=== PATIENT | female | born 1995 | race Caucasian/White ===

== ENCOUNTER 2018-09-30 00:25 | Observation (INO) ==
[2018-09-30] MEDS ORDERED: ONDANSETRON 4 MG/2 ML VIAL IVP ONE ×2 (00:45→02:28)
[2018-09-30] MEDS ORDERED: MORPHINE SULFATE 4 MG/1 ML IVP ONE (00:45)
[2018-09-30] MEDS ORDERED: Sodium Chloride 0.9% 1,000 ML PRIMARY IV ONE (00:45)
[2018-09-30] MEDS ORDERED: TAMSULOSIN 0.4 MG CAPSULE PO ONE (00:50)
[2018-09-30 00:51] LABS: BASOPHILS # (AUTO) 0.11 10*3/UL; BASOPHILS % (AUTO) 0.6 % (0-1); EOSINOPHILS # (AUTO) 0.22 10*3/UL; EOSINOPHILS % (AUTO) 1.3 % (0-8); Hematocrit [HCT] 37.1 % (37.0-47.0); Hemoglobin [HGB] 12.6 g/dL (12.0-16.0); LYMPHOCYTES # (AUTO) 8.36 10*3/uL; MEAN CORPUSCULAR HEMOGLOBIN 28.8 PG (27-31); MEAN CORPUSCULAR VOLUME 84.7 FL (81-99); MEAN PLATELET VOLUME 10.4 FL (7.4-12.2); MONOCYTES # (AUTO) 1.55 10*3/UL (0.3-0.8); MONOCYTES % (AUTO) 8.8 % (5-15); NEUTROPHILS % (AUTO) 41.5 % (50-80); RED BLOOD COUNT 4.38 10^6/uL (4.20-5.40)
[2018-09-30 00:58] LABS: BLOOD UREA NITROGEN 12 mg/dL (7-22); LIPASE 56 IU/L (23-300); SERUM ALBUMIN 4.3 g/dL (3.5-4.8)
[2018-09-30 01:08] LABS: PLATELET MORPHOLOGY COMMENT NORMAL MORPHOLOGY (NORM); RBC MORPHOLOGY COMMENT NORMAL MORPHOLOGY (NORM); WBC MORPHOLOGY COMMENT NORMAL MORPHOLOGY (NORM)
[2018-09-30 01:15] LABS: BILIRUBIN,URINE NEGATIVE (NEG); CLARITY,URINE CLEAR (CLEAR); COLOR,URINE YELLOW (Y); GLUCOSE, URINE (UA) NEGATIVE (NEG); OCCULT BLOOD,URINE Trace-intact (NEG); PH,URINE 5.5 (5.0-8.5); PROTEIN,URINE 30 mg/dl (NEG); UROBILINOGEN,URINE 0.2 EU/dL (0.2)
[2018-09-30 01:22] LABS: SQUAMOUS EPITHELIAL CELL,UR MODERATE; URINE SAMPLE TYPE CATH SPECIMEN
--- NOTE | 2018-09-30 02:12 | DI ---
EXAM: CT Abdomen and Pelvis With Intravenous Contrast CLINICAL HISTORY: ITS.REASON Left Lower ABD Pain Physician Notes: Tech Comments: TECHNIQUE: Axial computed tomography images of the abdomen and pelvis with intravenous contrast. COMPARISON: No relevant prior studies available. FINDINGS: Lung bases: No acute findings. ABDOMEN: Liver: Suggestion of ill-defined hypodense lesion in the liver measuring approximately 2.5 cm (image [id number]), indeterminate etiology. Gallbladder and bile ducts: Unremarkable. Pancreas: Unremarkable. Spleen: Unremarkable. Adrenals: Unremarkable. Kidneys and ureters: Unremarkable. No hydronephrosis. Stomach and bowel: Mild fluid and air in small bowel loops, nonspecific, enteritis not excluded in the appropriate clinical setting. No evidence of bowel obstruction. PELVIS: Appendix: No findings to suggest acute appendicitis. Bladder: Unremarkable. Reproductive: A 5 cm low-density left adnexal structure, likely ovarian. IUD noted. ABDOMEN and PELVIS: Intraperitoneal space: Possible trace pelvic free fluid. No free air. Bones/joints: Small osseous sclerotic densities. Soft tissues: Unremarkable. Vasculature: Unremarkable. Lymph nodes: Small nonspecific mesenteric and retroperitoneal lymph nodes. IMPRESSION: 1. A 5 cm low-density left adnexal structure, likely ovarian. Ultrasound may be considered for further evaluation. 2. Mild fluid and air in small bowel loops, nonspecific, enteritis not excluded in the appropriate clinical setting. 3. Suggestion of ill-defined hypodense lesion in the liver, indeterminate etiology.
[2018-09-30] MEDS ORDERED: HYDROmorphone 2 MG/1 ML IVP ONE ×2 (02:21→02:27)
--- NOTE | 2018-09-30 03:49 | DI ---
EXAM: US Pelvis, Transvaginal CLINICAL HISTORY: Left adnexal pain TECHNIQUE: Real-time transvaginal pelvic ultrasound (complete) with image documentation. Transvaginal imaging was used for better evaluation of the endometrium and adnexa. COMPARISON: CT abdomen and pelvis dated 09/30/2018 FINDINGS: Uterus/cervix: Uterus measures 6.9 x 3.3 x 2.8 cm. IUD is noted within endometrium. No myometrial mass. Right ovary: Measures 3.5 x 2.7 x 1.7 cm. No mass or torsion. Left ovary: Measures 4.8 x 4.2 x 3.0 cm. No mass or torsion. Free fluid: Trace free fluid the pelvis. IMPRESSION: Enlarged left ovary as compared to the right. Normal arterial and venous waveforms. No evidence of torsion or mass.
[2018-09-30] MEDS ORDERED: Lactated Ringers 1,000 ML PRIMARY IV ONE ×2 (05:28→05:46)
[2018-09-30] MEDS ORDERED: ONDANSETRON 4 MG/2 ML VIAL IVP PRN (05:46)
[2018-09-30] MEDS: HYDROmorphone 2 MG/1 ML IVP PRN ×2 (06:14→09:49)
[2018-09-30] MEDS: CefOXitin Inj 2 GM in Sodium Chloride 0.9% 100 ML IV SCH ×2 (06:15→12:50)
--- NOTE | 2018-09-30 07:26 | PDOC ---
Abdomen/Flank HPI - General Chief Complaint: Abdomen Pain Stated Complaint: Left Side Pain Date Seen by Provider: 09/30/18 Time Seen by Provider: 00:30 Source: POSITIVE: Patient Exam Limitations: POSITIVE: No limitations Nurse's Notes Reviewed & Considered: Yes - History of Present Illness Initial Comments: The patient is a 22-year-old female. 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 Patient states that she has an IUD in place and just finished her menstrual cycle. No associated fevers or chills. She's had associated vomiting here in the emergency room. No diarrhea, melena, hematochezia, hematemesis, dysuria or hematuria. No history of previous similar symptoms. She has had a lap band procedure. She states she is allergic to sulfa. Body Location Affected: REPORTS: Abdomen Timing: REPORTS: Abrupt Duration: 1-3 hours (Onset of pain approximately 2 hours STEREOTYPE CASTER) Severity: Severe Quality: REPORTS: "Pain" Abdominal Pain Onset Location: REPORTS: LLQ Abdominal Pain Radiation: REPORTS: No radiation Context: REPORTS: Rest Modifying Factors: improves with: Vomiting, Movement, Other (Direct palpation) Associated Symptoms: REPORTS: Denies symptoms Similar Symptoms Previously: No Recent Care Received: REPORTS: Denies Any Prior Injuries Related to Current Complaint?: No - Patient Home Medications Home Medications: Home Medications NK 09/30/18 - Patient Allergies Allergies/Adverse Reactions: Allergies Allergy/AdvReac Type Severity Reaction Status Date / Time Sulfa (Sulfonamide Allergy Rash Verified 09/30/18 06:23 Antibiotics) Past Medical History - heen HEENT History: Denies History Cardiovascular History: Denies History Respiratory History: Denies History Gastrointestinal History: Denies History Genitourinary History: Denies History Endocrine History: Denies History Musculoskeletal History: Denies History Neurological History: Denies History Blood Disorders: Denies History Psychiatric History: Denies History Female Reproductive History: Denies History Obstetrical History: Denies History Cancer History: Denies History In Past Year Been Physically Harmed or Verbally Threatened: No History of MDRO: Yes Tobacco Use: Never Smoker In the Past 12 Months, Have Used or Abuse Any Substance: None Previous Surgical History: Yes Type / Date of Surgery: Left Hand Significant Family History: No pertinent family hx Past Medical History Reviewed: Reviewed - No Changes ROS - Limitations ROS Limitations: No Limitations Constitution: REPORTS: Denies Symptoms Cardiovascular: REPORTS: Denies Cardiac Symptoms Respiratory: REPORTS: Denies Resp Symptoms Neurological: REPORTS: Denies Neuro Symptoms Gastrointestinal: REPORTS: Abdominal Pain, Nausea, Vomitting Endocrine: REPORTS: Denies Symptoms Musculoskeletal: REPORTS: Denies MS Symptoms Genitourinary: REPORTS: Denies Symptoms Eyes: REPORTS: Denies Symptoms ENT: REPORTS: Denies Symptoms Skin: REPORTS: Denies Skin Symptoms Lympathic: REPORTS: Denies Lympathic Symptoms Immunologic: POSITIVE: Denies Symptoms Psychiatric: POSITIVE: Denies Psych Symptoms Abdominal/Flank Pain PE - General Appearance General Appearance: POSITIVE: Alert, Cooperative, Moderate Distress (Due to pain). NEGATIVE: No Acute Distress - HEENT HEENT: POSITIVE: Head Inspection Nml, Eyes Inspection Nml, Ears Inspection Nml, Nose Inspection Nml, Oral/Dental Inspect. Nml, Pharynx Inspect. Nml, PERRL, EOMI - Neck Neck: POSITIVE: Normal Inspection, No Apparent Injury - Respiratory Respiratory: POSITIVE: No Respiratory Distress, Breath Sounds Normal, Chest Non- Tender - Cardiovascular Cardiovascular: POSITIVE: Regular Rate and Rhythm, Heart Sounds Normal, Equal Pulses, Strong Pulses Peripheral Pulses: Radial (R): 2+, Radial (L): 2+ - Chest Chest: POSITIVE: Non Tender - Abdomen Abdomen: Soft: (All Quadrants), Normal Bowel Sounds: (All Quadrants), Denies Tenderness: (RUQ), (LUQ), (RLQ), No Splenomegaly: (All Quadrants), No Hepatome marko: (All Quadrants), No Guarding: (RUQ), (LUQ), (RLQ), No Rebound: (All Quadrants), No Palpable Pulse: (All Quadrants), No Palpabale Mass: (All Quadrants), No Distention: (All Quadrants), No Rigidity: (All Quadrants), Tenderness Noted: (LLQ) Additional Abdominal Details: Abdominal examination shows that the patient has considerable tenderness in the left lower abdomen with some guarding here. No definite rebound. No masses, organomegaly or rebound. - Genital / Rectal Pelvic: POSITIVE: External Exam Normal, Vaginal Discharge (Some mucoid vaginal discharge), Cervical Motion Tender (Moderately), Adnexal Tenderness (L). NEGAT NIKIA: Speculum Exam Normal, Bimanual Exam Normal, Vaginal Bleeding, Adnexal Tenderness (R), Adnexal Mass (R), Adnexal Mass (L), Enlarged Uterus, Tender Uterus, Perineal Hematoma - Back Back: POSITIVE: Normal Inspection. 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 Pelvic ultrasound with venous duplex ultrasound for ovarian blood flow shows an enlarged left ovary; good ovarian blood flow bilaterally. Lab Results Reviewed by Me: Yes (Chlamydia and gonorrhea PRC negative) CBC and BMP: 09/30/18 00:35 09/30/18 00:35 Lab Results:: Laboratory Results 09/30/18 09/30/18 09/30/18 00:35 00:35 00:35 WBC 17.59 H RBC 4.38 Hgb 12.6 Hct 37.1 MCV 84.7 MCH 28.8 MCHC 34.0 RDW Std Deviation 39.8 RDW Coeff of Ivania 13.1 Plt Count 448 H MPV 10.4 Immature Gran % (Auto) 0.3 Neut % (Auto) 41.5 L Lymph % (Auto) 47.5 Mathews % (Auto) 8.8 Eos % (Auto) 1.3 Baso % (Auto) 0.6 Immature Gran # (Auto) 0.05 Neut # (Auto) 7.30 Lymph # (Auto) 8.36 Mathews # (Auto) 1.55 H Eos # (Auto) 0.22 Baso # (Auto) 0.11 WBC Morphology Comment Normal morphology Plt Morphology Comment Normal morphology RBC Morph Comment Normal morphology ESR Sodium 140 Potassium 3.8 Chloride 107 Carbon Dioxide 24 Anion Gap 9 BUN 12 Creatinine 0.8 Estimated GFR > 60 BUN/Creatinine Ratio 15.00 Glucose 157 H Calculated Osmolality 292.0 Calcium 9.4 Total Bilirubin 0.2 L AST 21 ALT 23 Alkaline Phosphatase 74 C-Reactive Protein Total Protein 7.4 Albumin 4.3 Globulin 3.0 Albumin/Globulin Ratio 1.40 Amylase 68 Lipase 56 Serum HCG, Qual Negative Ur Collection Type Urine Color Urine Clarity Urine pH Ur Specific [place] Urine Protein Urine Glucose (UA) Urine Ketones Urine Occult Blood Urine Nitrate Urine Bilirubin Urine Urobilinogen Ur Leukocyte Esterase Urine RBC Urine WBC Ur Squamous Epith Cells Ur Renal Epithelial Cell Urine Crystals Urine Bacteria Urine Casts Urine Mucus Urine Trichomonas Urine Yeast Ur Culture Indicated? 09/30/18 09/30/18 09/30/18 00:35 00:35 01:10 WBC RBC Hgb Hct MCV MCH MCHC RDW Std Deviation RDW Coeff of Ivania Plt Count MPV Immature Gran % (Auto) Neut % (Auto) Lymph % (Auto) Mathews % (Auto) Eos % (Auto) Baso % (Auto) Immature Gran # (Auto) Neut # (Auto) Lymph # (Auto) Mathews # (Auto) Eos # (Auto) Baso # (Auto) WBC Morphology Comment Plt Morphology Comment RBC Morph Comment ESR 8 Sodium Potassium Chloride Carbon Dioxide Anion Gap BUN Creatinine Estimated GFR BUN/Creatinine Ratio Glucose Calculated Osmolality Calcium Total Bilirubin AST ALT Alkaline Phosphatase C-Reactive Protein 0.9 Total Protein Albumin Globulin Albumin/Globulin Ratio Amylase Lipase Serum HCG, Qual Ur Collection Type Cath specimen Urine Color Yellow Urine Clarity Clear Urine pH 5.5 Ur Specific [place] 1.025 Urine Protein 30 A Urine Glucose (UA) Negative Urine Ketones Trace A Urine Occult Blood Trace-intact H Urine Nitrate Negative Urine Bilirubin Negative Urine Urobilinogen 0.2 Ur Leukocyte Esterase Negative Urine RBC 1-3 Urine WBC 1-3 Ur Squamous Epith Cells Moderate Ur Renal Epithelial Cell None Urine Crystals None Urine Bacteria None Urine Casts None Urine Mucus Rare Urine Trichomonas None Urine Yeast None Ur Culture Indicated? Culture not set - Patient's Progress Pain Medication Addressed: POSITIVE: Yes (Patient medicated with morphine sulfate and later Dilaudid IV in the emergency room) School/Work Release Addressed: POSITIVE: Not Applicable Re-examine Time: 03:20 Re-Examine Comment: Patient advised that I'm not completely sure what the source of her left lower abdominal pain is. She does have an enlarged left ovary, according to CT scan and ultrasound, but no ovarian torsion. CT scan shows no evidence of ureterolithiasis. Patient does seem to be in considerable pain and has been medicated with morphine and Dilaudid in the emergency room. Case was discussed with Dr. Samuels, surgeon, who asked that I discussed the case with the wire cutter tax credit leasing consultant. I then discussed the case with Dr. Lopez, with his who is on-call for gynecology. Dr. Lopez declines to admit patient. I then called Dr. Samuels back, and he will come to the emergency room to evaluate the patient and admit the patient. Status: POSITIVE: Improved (With analgesia, Zofran and hydration), Re-Examined - Consult Consult (If Yes, Name of Consulting MD & Time Called): Yes (Dr. Samuels,[id number]; Dr. Lopez [phone], [phone] ) Consulting MD will see pt:: POSITIVE: In ED, [facility] [place] Admit Counseled: POSITIVE: Patient, RE: Lab Results, RE: Radiology Results, RE: DX, RE: Need for F/U Patient Care Time - Estimated PCT Patient Care Time (In Minutes): 65 Vital Signs - Recent Vital Signs Vital Signs: Vital Signs (Last 8 hours) Temp Pulse Resp BP Pulse Ox 09/30/18 03:44 74 17 117/71 94 09/30/18 00:31 96.9 F 56 L 36 H 73/47 97 - VS Reviewed Vital Signs Reviewed: Yes Discharge Clinical Impression: Abdominal pain Discharge Disposition: Admit to Inpatient Condition: Stable Date Decision to Admit to Inpatient: 09/30/18 Time Decision to Admit to Inpatient: 03:00
[2018-09-30 12:43] VITALS: BP 116/61; RESP 20; TEMP 97.4; O2SAT 95
--- NOTE | 2018-09-30 16:12 | DCSUMMARY ---
Hospitalization Summary Admit Date: 09/30/2018 Discharge Date: 09/30/18 Primary Diagnosis:: abdominal pain Hospital Course: This very pleasant 22-year-old female that presented with severe left-sided abdominal pain, no fever, but was associated with nausea and vomiting. Workup in the emergency room revealed a negative CT scan of the abdomen and pelvis with contrast. A pelvic ultrasound was positive for left ovarian enlargement, but flows were noted to be normal. Patient was admitted by surgery with assumption of possible tubo-ovarian abscess, but apparently in discussion with surgery and cook pickled meat, it was determined that this was not a tubo-ovarian abscess. Today, the patient stated to me that she wanted to eat. She is placed on a regular diet and she had no further nausea or vomiting. Her pain is somewhat better. I spoke with the RN, the patient has not had any IV doses of pain medication this afternoon. In addition, the patient was found by the nurse to be "making out" with her boyfriend in the hospital bed. I went and spoke with the patient regarding her tolerance of her diet and her pain, and she feels that she could go home. In fact she would like to do that. There does not appear to be any surgical issues here. Without hydronephrosis, and trace blood in the urine. The patient did tell me that she was just 2 days out from her. But she still had some bleeding and irritation so that could be the source of the trace blood in the urine, and I think that the patient could go with recommended follow-up which I told her to do. Assessment and Plan: 1. As per discharge assessments noted 2. Disposition: Patient is discharged home. 3. Condition on discharge, stable and improved. 4. Diet: regular diet 5. Activities: resume normal activities, although I have recommended refraining from sexual activity until antibodies are completed and I also recommended workup of any sexual partners. 6. Follow-Up: 1. 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 7. Medications at the Time of Discharge: Home Medications Medication Instructions Recorded Confirmed Type Doxycycline Monohydrate 100 mg PO BID #28 tablet 09/30/18 Rx metroNIDAZOLE Tab [Flagyl Tab] 500 mg PO Q12H #28 tab 09/30/18 Rx Same day admission and discharge. Exam - Vitals Vital Signs: Vital Signs Temperature 97.4 F Temperature Source Temporal Artery Scan Pulse Rate [Pulse Oximeter] 94 Pulse Rate 87 Respiratory Rate 20 Blood Pressure [Right Arm] 116/61 Blood Pressure [Left Arm] 133/63 Blood Pressure 115/66 Pulse Ox 95 Oxygen Delivery Method Room Air Height 6 ft 1 in Weight 223 lb - General General Appearance: No Acute Distress, Cooperative - Eye Eye Exam: POSITIVE: No Scleral Icterus - ENT ENT Exam: POSITIVE: Mucous Membranes Moist - Neck Neck Exam: JVP is not Raised - Respiratory Respiratory Exam: POSITIVE: Clear to Auscultation - Bilaterally, Breathing Non Labored - Cardiovascular Cardiovascular Exam: POSITIVE: RRR, No Murmur, No Clicks, No Gallops, No Rubs, No JVD - GI/Abdominal GI/Abdominal Exam: POSITIVE: Normal Bowel Sounds, Non Tender, Non Distended, Soft - Extremities Extremities Exam: POSITIVE: No Clubbing Present, No Edema Present, No Cyanosis Present - Neurological Neurological Exam: POSITIVE: Alert, Oriented x 3, No Facial Droop, Speech Intact / Clear, Moves All Extremities Equally - Psychiatric Psychiatric Exam: POSITIVE: Normal Affect, Normal Mood Data Peritnent Studies: Laboratory Results 09/30/18 09/30/18 09/30/18 00:35 00:35 00:35 WBC 17.59 H RBC 4.38 Hgb 12.6 Hct 37.1 MCV 84.7 MCH 28.8 MCHC 34.0 RDW Std Deviation 39.8 RDW Coeff of Ivania 13.1 Plt Count 448 H MPV 10.4 Immature Gran % (Auto) 0.3 Neut % (Auto) 41.5 L Lymph % (Auto) 47.5 Norman % (Auto) 8.8 Eos % (Auto) 1.3 Baso % (Auto) 0.6 Immature Gran # (Auto) 0.05 Neut # (Auto) 7.30 Lymph # (Auto) 8.36 Norman # (Auto) 1.55 H Eos # (Auto) 0.22 Baso # (Auto) 0.11 WBC Morphology Comment Normal morphology Plt Morphology Comment Normal morphology RBC Morph Comment Normal morphology ESR Sodium 140 Potassium 3.8 Chloride 107 Carbon Dioxide 24 Anion Gap 9 BUN 12 Creatinine 0.8 Estimated GFR > 60 BUN/Creatinine Ratio 15.00 Glucose 157 H Calculated Osmolality 292.0 Calcium 9.4 Total Bilirubin 0.2 L AST 21 ALT 23 Alkaline Phosphatase 74 C-Reactive Protein Total Protein 7.4 Albumin 4.3 Globulin 3.0 Albumin/Globulin Ratio 1.40 Amylase 68 Lipase 56 Serum HCG, Qual Negative Ur Collection Type Urine Color Urine Clarity Urine pH Ur Specific [place] Urine Protein Urine Glucose (UA) Urine Ketones Urine Occult Blood Urine Nitrate Urine Bilirubin Urine Urobilinogen Ur Leukocyte Esterase Urine RBC Urine WBC Ur Squamous Epith Cells Ur Renal Epithelial Cell Urine Crystals Urine Bacteria Urine Casts Urine Mucus Urine Trichomonas Urine Yeast Ur Culture Indicated? 09/30/18 09/30/18 09/30/18 00:35 00:35 01:10 WBC RBC Hgb Hct MCV MCH MCHC RDW Std Deviation RDW Coeff of Ivania Plt Count MPV Immature Gran % (Auto) Neut % (Auto) Lymph % (Auto) Norman % (Auto) Eos % (Auto) Baso % (Auto) Immature Gran # (Auto) Neut # (Auto) Lymph # (Auto) Norman # (Auto) Eos # (Auto) Baso # (Auto) WBC Morphology Comment Plt Morphology Comment RBC Morph Comment ESR 8 Sodium Potassium Chloride Carbon Dioxide Anion Gap BUN Creatinine Estimated GFR BUN/Creatinine Ratio Glucose Calculated Osmolality Calcium Total Bilirubin AST ALT Alkaline Phosphatase C-Reactive Protein 0.9 Total Protein Albumin Globulin Albumin/Globulin Ratio Amylase Lipase Serum HCG, Qual Ur Collection Type Cath specimen Urine Color Yellow Urine Clarity Clear Urine pH 5.5 Ur Specific [place] 1.025 Urine Protein 30 A Urine Glucose (UA) Negative Urine Ketones Trace A Urine Occult Blood Trace-intact H Urine Nitrate Negative Urine Bilirubin Negative Urine Urobilinogen 0.2 Ur Leukocyte Esterase Negative Urine RBC 1-3 Urine WBC 1-3 Ur Squamous Epith Cells Moderate Ur Renal Epithelial Cell None Urine Crystals None Urine Bacteria None Urine Casts None Urine Mucus Rare Urine Trichomonas None Urine Yeast None Ur Culture Indicated? Culture not set Procedures: [address] [facility]. [facility] [place] [id number] PH: DD: [phone] FAX: [phone] ~DIAGNOSTIC IMAGING REPORT~ Patient: Eugenia Talley : 1995 Sex: F Age: 22 Exam Name: US Pelvic Transvaginal Exam Date: 09/30/18 Report # : [id number] CPT Code: 58285 EMR/MR #: [id number] Ordering: RENNY DE LA GARZA Admiting: Primary: NONE,NONE Attending: Signed EXAM: US Pelvis, Transvaginal CLINICAL HISTORY: Left adnexal pain TECHNIQUE: Real-time transvaginal pelvic ultrasound (complete) with image documentation. Transvaginal imaging was used for better evaluation of the endometrium and adnexa. COMPARISON: CT abdomen and pelvis dated 09/30/2018 FINDINGS: Uterus/cervix: Uterus measures 6.9 x 3.3 x 2.8 cm. IUD is noted within endometrium. No myometrial mass. Right ovary: Measures 3.5 x 2.7 x 1.7 cm. No mass or torsion. Left ovary: Measures 4.8 x 4.2 x 3.0 cm. No mass or torsion. Free fluid: Trace free fluid the pelvis. IMPRESSION: Enlarged left ovary as compared to the right. Normal arterial and venous waveforms. No evidence of torsion or mass. Dictated By: Joshua Burrows MD Signed By: 09/30/18 0349 Joshua Burrows MD [address] Medicine. [facility] [place] [address] PH: DD: [phone] FAX: [phone] ~DIAGNOSTIC IMAGING REPORT~ Patient: Eugenia Talley : 1995 Sex: F Age: 22 Exam Name: CT Abdomen/Pelvis W Contrast Exam Date: 09/30/18 Report # : [id number] CPT Code: 63106 EMR/MR #: [id number] Ordering: RENNY DE LA GARZA Admiting: Primary: NONE,NONE Attending: Signed EXAM: CT Abdomen and Pelvis With Intravenous Contrast CLINICAL HISTORY: ITS.REASON Left Lower ABD Pain Physician Notes: Tech Comments: TECHNIQUE: Axial computed tomography images of the abdomen and pelvis with intravenous contrast. COMPARISON: No relevant prior studies available. FINDINGS: Lung bases: No acute findings. ABDOMEN: Liver: Suggestion of ill-defined hypodense lesion in the liver measuring approximately 2.5 cm (image [id number]), indeterminate etiology. Gallbladder and bile ducts: Unremarkable. Pancreas: Unremarkable. Spleen: Unremarkable. Adrenals: Unremarkable. Kidneys and ureters: Unremarkable. No hydronephrosis. Stomach and bowel: Mild fluid and air in small bowel loops, nonspecific, enteritis not excluded in the appropriate clinical setting. No evidence of bowel obstruction. PELVIS: Appendix: No findings to suggest acute appendicitis. Bladder: Unremarkable. Reproductive: A 5 cm low-density left adnexal structure, likely ovarian. IUD noted. ABDOMEN and PELVIS: Intraperitoneal space: Possible trace pelvic free fluid. No free air. Bones/joints: Small osseous sclerotic densities. Soft tissues: Unremarkable. Vasculature: Unremarkable. Lymph nodes: Small nonspecific mesenteric and retroperitoneal lymph nodes. IMPRESSION: 1. A 5 cm low-density left adnexal structure, likely ovarian. Ultrasound may be considered for further evaluation. 2. Mild fluid and air in small bowel loops, nonspecific, enteritis not excluded in the appropriate clinical setting. 3. Suggestion of ill-defined hypodense lesion in the liver, indeterminate etiology. Dictated By: Monse Slaughter MD Signed By: 09/30/18 0212 Monse Slaughter MD Patient Problems - Patient Problem List (1) Left ovarian enlargement Current Visit: Yes Status: Acute Comment: question pelvic inflammatory disease? Patient is taking by mouth now and I think she can be discharged home on doxycycline and Flagyl. Code(s): N83.8 - Other noninflammatory disorders of ovary, fallopian tube and broad ligament Category: Medical (2) Abdominal pain Current Visit: Yes Status: Acute Code(s): R10.9 - Unspecified abdominal pain Category: Medical
== END 2018-09-30 16:36 | disposition home or self-care (01) ==
LOC: MED/SURG 00:25 → ER 00:25 → MED/SURG 04:40
PROVIDERS: ADMIT Family Medicine; ATTEND Family Medicine